=== PATIENT | female | born 1935 ===

== ENCOUNTER → 2019-04-10 | Outpatient (CLI) | payer OTHER ==
--- NOTE | 2019-04-10 16:38 | RAD ---
Examination: Right Lower Extremity Venous Doppler Ultrasound History: Right lower extremity edema Comparison: None Procedure: Marcelo scale, color flow 2D and spectal waveform analysis images are obtained with and without compression in the area of the common femoral vein, superficial femoral vein - femoral vein junction, main femoral vein (superficial femoral vein) and popliteal vein. Veins of the proximal calf are also imaged. Findings: There is normal duplex flow, color flow and compressibility of all visualized vein segments. No evidence of deep venous thrombus is present. Impression: No evidence of DVT in the visualized right lower extremity venous system. Electronically signed by: Mike Chavez MD (04/10/2019 4:35 PM) [place] [id number]
--- NOTE | 2019-04-10 16:53 | RAD ---
Right lower extremity arterial Doppler ultrasound HISTORY: Right lower extremity pain and numbness TECHNIQUE: Color Doppler, grayscale and duplex analysis performed of the right lower extremity arterial structures, from the common femoral artery through the runoff vessels. COMPARISON: None Findings: All velocity measurements are in centimeters per second. Triphasic waveform at the right common femoral artery. Biphasic waveforms distal to this. Velocities range from 38 in the calf to 177 at the common femoral artery. No critical segmental velocity elevations are identified. Calcified plaque is identified throughout. No evidence of occlusion. IMPRESSION: Diffuse atherosclerotic disease without evidence of critical stenosis or occlusion. Electronically signed by: Shahab Westfall MD (04/10/2019 4:49 PM) [id number]
== END | disposition home or self-care (01) ==
LOC: US 14:50
PROVIDERS: ATTEND Family Medicine
DX: I70.291 Other atherosclerosis of native arteries of extremities, right leg (principal)
CPT/HCPCS: 93926; 93971